=== PATIENT | female | born 1985 | race Hispanic/Latino ===

== ENCOUNTER 2021-07-22 01:16 | Emergency (ER) | payer BC ==
[2021-07-22] MEDS ORDERED: Morphine 4 MG/ML VIAL ONE (01:44)
[2021-07-22] MEDS ORDERED: Acetaminophen 500 MG TAB ONE (01:45)
== END 2021-07-22 04:14 | disposition home or self-care (01) ==
LOC: CSHERS 01:16
DX: R10.30 Lower abdominal pain, unspecified (principal); J45.909 Unspecified asthma, uncomplicated; Z79.899 Other long term (current) drug therapy
CPT/HCPCS: 76856; 96374; J2270